=== PATIENT | female | born 1960 | race Caucasian/White ===

== ENCOUNTER 2017-08-09 16:59 | Emergency (ER) | payer OTHER ==
[~2017-08-09] VITALS: Ht 160 cm; Wt 50.0 kg
[~2017-08-09 16:59] MED LIST: ALOE VERA GEL; ALPR-624 PO; CALCIUM; COLACE; FIBER; MAGNESIUM; MSM; MVI; OXYC10TA47 PO; PROBIOTIC; SENNA; VAL5T PO; VITAMIN C; VITAMIN D
[2017-08-09] MEDS ORDERED: normal saline 1000ML IV soln IVB ONE (17:20)
[2017-08-09 18:11] LABS: BASOPHILS % (AUTO) 0.2 % (0-1); EOSINOPHILS # (AUTO) 0.1 X10'3 (0-0.9); EOSINOPHILS % (AUTO) 0.6 % (0-6); HEMATOCRIT 38.9 % (35.0-45.0); HEMOGLOBIN 13.6 g/dl (12.0-16.0); LYMPHOCYTES # (AUTO) 1.4 X10'3 (1.1-4.8); LYMPHOCYTES % (AUTO) 14.7 % (21-51); MEAN CORPUSCULAR HEMOGLOBIN 33.7 PG (27.0-31.0); MEAN CORPUSCULAR VOLUME 96.4 FL (78-98); MEAN PLATELET VOLUME 7.2 FL (7.4-10.4); MONOCYTES # (AUTO) 0.7 X10'3 (0-0.9); MONOCYTES % (AUTO) 7.3 % (2-12); NEUTROPHILS # (AUTO) 7.2 X10'3 (1.8-7.7); NEUTROPHILS % (AUTO) 77.2 % (42-75); PLATELET COUNT 267 X10'3 (140-440); RED BLOOD COUNT 4.04 X10'6 (4.20-5.60); RED CELL DISTRIBUTION WIDTH 11.6 % (11.5-14.5); WHITE BLOOD COUNT 9.3 X10'3 (4.5-11.0)
[2017-08-09] MEDS ORDERED: iohexol 300mg/ml 100ml inj. ONE (18:46)
[2017-08-09 18:55] LABS: CLARITY,URINE Clear (Clear); COLOR,URINE Yellow (Yellow); GLUCOSE, URINE Negative (Neg); KETONES,URINE Negative (Neg); LEUKOCYTE ESTERASE ,URINE Negative (Neg); NITRITES, URINE Negative (Neg); OCCULT BLOOD,URINE Negative (Neg); PROTEIN,URINE Negative (Neg); UROBILINOGEN,URINE 0.2 E.U/dL (0.2-1.0)
[2017-08-09 19:01] LABS: UA COLLECTION TYPE CLN CATCH MIDSTREAM
[2017-08-09 19:15] LABS: ALANINE AMINOTRANSFERASE 15 U/L (12-78); ALBUMIN 3.4 G/DL (3.4-5.0); ALKALINE PHOSPHATASE 65 IU/L (46-116); ANION GAP 8 (8-16); ASPARTATE AMINO TRANSFERASE 21 U/L (10-37); BILIRUBIN,TOTAL 0.6 MG/DL (0.1-1.0); BLOOD UREA NITROGEN 7 MG/DL (7-18); BUN/CREATININE RATIO 10.6 (6.6-38.0); CALCIUM 8.6 MG/DL (8.5-10.1); CHLORIDE 97 MMOL/L (99-107); CREATININE 0.66 MG/DL (0.40-0.90); GLUCOSE 90 MG/DL (70-104); LIPASE 60 U/L (73-393); POTASSIUM 3.1 MMOL/L (3.5-5.1); SODIUM 129 MMOL/L (135-145); TOTAL PROTEIN 6.7 G/DL (6.4-8.2); eGFR > 90 ML/MIN
[2017-08-09] MEDS ORDERED: levoFLOXACIN-Levaquin 500mg/D5 100 ML IV ONE (19:30)
[2017-08-09] MEDS ORDERED: LEVO500T89 PO (20:30)
[2017-08-09 20:52] VITALS: BP 116/75
== END 2017-08-09 21:02 | disposition home or self-care (01) ==
LOC: ER 17:00
DX: R10.31 Right lower quadrant pain (principal); K62.89 Other specified diseases of anus and rectum; Z79.899 Other long term (current) drug therapy
CPT/HCPCS: 36415; 74176; 80053; 81003; 83690; 85025; 96365; 99285; J1956; J7030; Q9967

== ENCOUNTER 2018-09-24 08:30 | Emergency (ER) | payer OTHER ==
[~2018-09-24] VITALS: Ht 162.6 cm; Wt 50.0 kg
[2018-09-24 08:39] VITALS: BP 119/80
[2018-09-24] MEDS ORDERED: CIPR7.5D OT (09:31)
== END 2018-09-24 09:43 | disposition home or self-care (01) ==
LOC: ER 08:31
DX: H60.91 Unspecified otitis externa, right ear (principal); H66.93 Otitis media, unspecified, bilateral; Z79.2 Long term (current) use of antibiotics; Z79.899 Other long term (current) drug therapy
CPT/HCPCS: 99283

== ENCOUNTER 2018-09-28 08:43 | Emergency (ER) | payer OTHER ==
[~2018-09-28] VITALS: Ht 162.6 cm; Wt 50.0 kg
[~2018-09-28 08:43] MED LIST changes: +CIPR7.5D OT
[2018-09-28 08:45] VITALS: BP 122/81
[2018-09-28] MEDS ORDERED: AMOX-580 PO (08:52)
[2018-09-28] MEDS ORDERED: CIPR7.5D RIGHT EAR (08:52)
== END 2018-09-28 08:57 | disposition home or self-care (01) ==
LOC: ER 08:43
DX: H66.91 Otitis media, unspecified, right ear (principal)
CPT/HCPCS: 99283

== ENCOUNTER 2019-01-11 09:21 | Outpatient (CLI) | payer OTHER ==
[~2019-01-11 09:21] MED LIST changes: +CIPR7.5D RIGHT EAR
== END 2019-01-11 23:59 | disposition home or self-care (01) ==
LOC: LAB 09:21
PROVIDERS: ATTEND Family Medicine
DX: R73.09 Other abnormal glucose (principal)
CPT/HCPCS: 36415; 83036

== ENCOUNTER 2020-01-21 08:00 | Emergency (ER) | payer BC, OTHER ==
[~2020-01-21] VITALS: Ht 160 cm; Wt 52.0 kg
[2020-01-21 08:04] VITALS: BP 141/55
[2020-01-21] MEDS ORDERED: PANT-47 PO (09:00)
[2020-01-21] MEDS ORDERED: METR-159 PO (09:00)
[2020-01-21] MEDS ORDERED: CIPR-230 PO (09:00)
== END 2020-01-21 09:08 | disposition home or self-care (01) ==
LOC: ER 08:01
DX: K57.92 Diverticulitis of intestine, part unspecified, without perforation or abscess without bleeding (principal); R11.10 Vomiting, unspecified; Z76.0 Encounter for issue of repeat prescription; Z79.2 Long term (current) use of antibiotics; Z79.899 Other long term (current) drug therapy
CPT/HCPCS: 99283

== ENCOUNTER 2020-07-04 08:39 | Day surgery (SDC) | payer BC ==
[~2020-07-04] VITALS: Ht 160 cm; Wt 52.3 kg
[~2020-07-04 08:39] MED LIST changes: +DIAZ5TAB22 PO; +PANT-47 PO; -VAL5T PO
[2020-07-04 08:55] VITALS: BP 124/74
[2020-07-04] MEDS ORDERED: fentaNYL/PF 50MCG/1 ML 2ML syringe ONE ×2 (08:58→09:19)
[2020-07-04] MEDS ORDERED: MIDAZolam 1 MG/ML 5ML VIAL ONE ×2 (08:58→08:59)
[2020-07-04] MEDS ORDERED: diphenhydrAMINE 50 mg/ml inj ONE (08:59)
[2020-07-04] MEDS ORDERED: DICY20TA17 PO (09:13)
[2020-07-04 09:48] VITALS: BP 107/62
[2020-07-04 09:58] VITALS: BP 101/65
[2020-07-04 10:08] VITALS: BP 113/68
[2020-07-04 10:20] VITALS: BP 109/68
== END 2020-07-04 10:25 | disposition home or self-care (01) ==
LOC: GI LAB 08:39
PROVIDERS: ATTEND Internal Medicine Gastroenterology
DX: Z12.11 Encounter for screening for malignant neoplasm of colon (principal); K57.30 Diverticulosis of large intestine without perforation or abscess without bleeding; Z79.899 Other long term (current) drug therapy
CPT/HCPCS: 45378; 99152; 99153; J1200; J2250; J3010; J7040; A4620

== ENCOUNTER 2023-07-28 15:50 | Outpatient (CLI) | payer BC, OTHER ==
[~2023-07-28 15:50] MED LIST changes: -CIPR7.5D OT; -CIPR7.5D RIGHT EAR; +DICY20TA17 PO; -OXYC10TA47 PO
== END 2023-07-28 23:59 | disposition home or self-care (01) ==
LOC: RAD 15:50
PROVIDERS: ATTEND Family Medicine
DX: K40.91 Unilateral inguinal hernia, without obstruction or gangrene, recurrent (principal)
CPT/HCPCS: 76705

== ENCOUNTER 2023-10-13 05:38 | Day surgery (SDC) | payer OTHER ==
[2023-10-06 11:03] LABS: BASOPHILS % (AUTO) 0.7 % (0-1); EOSINOPHILS % (AUTO) 0.7 % (0-6); LYMPHOCYTES # (AUTO) 1.2 X10'3 (1.1-4.8); LYMPHOCYTES % (AUTO) 33.4 % (21-51); MEAN CORPUSCULAR HEMOGLOBIN 33.7 PG (27.0-31.0); MEAN CORPUSCULAR HGB CONC 34.3 g/dL (33.0-36.5); MEAN CORPUSCULAR VOLUME 98.3 FL (78-98); MEAN PLATELET VOLUME 6.9 FL (7.4-10.4); MONOCYTES # (AUTO) 0.3 X10'3 (0-0.9); MONOCYTES % (AUTO) 8.7 % (2-12); NEUTROPHILS % (AUTO) 56.5 % (42-75); PRE OP HEMATOCRIT 43.5 % (35.0-45.0); PRE OP HEMOGLOBIN 14.9 g/dL (12.0-16.0); PRE OP PLATELET COUNT 244 X10'3 (140-440); PRE OP WHITE BLOOD COUNT 3.5 10'3 (4.8-10.8); RED BLOOD COUNT 4.42 X10'6 (4.20-5.60); RED CELL DISTRIBUTION WIDTH 12.9 % (11.5-14.5)
[2023-10-06 11:15] LABS: ALBUMIN 4.1 G/DL (3.4-5.0); ALBUMIN/GLOBULIN RATIO 1.2 (1.1-1.5); ALKALINE PHOSPHATASE 83 IU/L (46-116); CALCIUM 8.7 MG/DL (8.5-10.1); CHLORIDE 97 MMOL/L (99-107); CREATININE 0.55 MG/DL (0.40-0.90); PRE OP ALT 24 U/L (30-65); PRE OP ANION GAP 8 (8-16); PRE OP AST 18 U/L (10-37); PRE OP GLUCOSE 97 MG/DL (70-104); PRE OP POTASSIUM 3.4 MMOL/L (3.4-5.1); PRE OP SODIUM 132 MMOL/L (135-145); TOTAL CARBON DIOXIDE 26.6 MMOL/L (24-32); TOTAL PROTEIN 7.4 G/DL (6.4-8.2); eGFR > 90 ML/MIN
[2023-10-06 11:20] LABS: BLOOD UREA NITROGEN 5 MG/DL (7-18); BUN/CREATININE RATIO 9.1 (10.0-20.0)
[2023-10-13] VITALS (12 sets, daily range): BP systolic 105–142; BP diastolic 64–83; PULSE 54–78; RESP 11–16; TEMP 98.5; O2SAT 95–100
[~2023-10-13] VITALS: Ht 160 cm; Wt 52.2 kg
[~2023-10-13 05:38] MED LIST changes: -ALOE VERA GEL; -CALCIUM; -COLACE; +CYCL-1 PO; +DOCU-148 PO; -FIBER; -MAGNESIUM; -MSM; -MVI; -PANT-47 PO; +PANT40SU2 PO; -PROBIOTIC; -SENNA; +SIME62.5 PO; -VITAMIN C; -VITAMIN D
[2023-10-13] MEDS: cefazolin 2gm/D5W 100mL 100 ML IV ONE (06:09)
[2023-10-13] MEDS: famotidine 20mg tablet PO ONE (06:10)
[2023-10-13] MEDS: ringers solution, lacted 1,000 ML IV SCH (06:11)
[2023-10-13] MEDS ORDERED: fentaNYL /PF 50mcg/ml 5ml ampule ONE (07:14)
[2023-10-13] MEDS ORDERED: midazolam 1 mg/ML 2ml injection ONE (07:14)
[2023-10-13] MEDS ORDERED: sevoflurane 250ml liquid IH ONE (07:30)
[2023-10-13] MEDS ORDERED: rocuronium 10mg/ml inj IV ONE (07:48)
[2023-10-13] MEDS ORDERED: LIDOcaine 2% (20mg/ml) 5ml vial ONE (07:48)
[2023-10-13] MEDS ORDERED: propofol inj 20 ML IV ONE (07:48)
[2023-10-13] MEDS ORDERED: dexamethasone sod phosphate 4mg/ml inj. ONE (07:48)
[2023-10-13] MEDS ORDERED: ondansetron/PF 4mg/2ml inj ONE (07:48)
[2023-10-13] MEDS ORDERED: ondansetron/PF 4mg/2ml inj IV PRN (07:55)
[2023-10-13] MEDS ORDERED: hydrALAZINE 20mg/ml inj. IV PRN (07:55)
[2023-10-13] MEDS ORDERED: meperidine/PF 25mg/ml syringe IV PRN ×3 (07:55)
[2023-10-13] MEDS ORDERED: morphine 2 MG/ML inj. syringe IV PRN (07:55)
[2023-10-13] MEDS ORDERED: labetalol 20mg/4ml (5mg/ml) syringe IV PRN (07:55)
[2023-10-13] MEDS ORDERED: morphine 4 MG/ML inj SYRINge IV PRN (07:55)
[2023-10-13] MEDS ORDERED: proCHLORperazine 10 MG/2 ml inj IV PRN (07:55)
[2023-10-13] MEDS ORDERED: ringers solution, lacted 1,000 ML IV SCH (07:55)
[2023-10-13] MEDS: BUPIVAcaine 2.5mg/ml inj 50ml vial (contains preservative) ONE (07:58)
[2023-10-13] MEDS: LIDOcaine 1% (10mg/ml)w/preservative inj. 20ml MDV ONE (07:58)
[2023-10-13] MEDS ORDERED: glycopyrrolate 0.2mg/ml inj ONE (08:44)
[2023-10-13] MEDS ORDERED: neostigmine methylsulfate 1 MG/ML 10ml vial ONE (08:44)
[2023-10-13] MEDS: acetaminophen 1,000mg/100ml IV 100 ML IV ONE (08:55)
[2023-10-13] MEDS ORDERED: oxyCODONE IR 5mg (immed. release) tablet PO PRN (09:10)
== END 2023-10-13 11:35 | disposition home or self-care (01) ==
LOC: PAS 05:38
PROVIDERS: ATTEND Surgery
DX: K40.90 Unilateral inguinal hernia, without obstruction or gangrene, not specified as recurrent (principal); K21.9 Gastro-esophageal reflux disease without esophagitis; F41.9 Anxiety disorder, unspecified; Z79.899 Other long term (current) drug therapy; Z98.890 Other specified postprocedural states; Z80.3 Family history of malignant neoplasm of breast
CPT/HCPCS: 36415; 49650; 80053; 82948; 85025; 93005; C1781; J0690; J1100; J2250; J2405; J2704; J2710; J3010; J3490; J7030; J7120; S2900; Z7506; Z7508; Z7512; A4215; A4618